=== PATIENT | female | born 1955 | race Caucasian/White ===

== ENCOUNTER 2024-04-13 21:18 | Emergency (ER) | payer OTHER ==
[~2024-04-13] VITALS: Ht 152.4 cm; Wt 59.0 kg
[2024-04-13] MEDS: KETAMINE HCL 50 MG/ML 10ML IV NR (23:59)
[2024-04-14 00:10] VITALS: O2SAT 99
[2024-04-14 01:50] VITALS: BP 123/75; PULSE 61; RESP 17; TEMP 36.78072; O2SAT 96; O2SAT 98
== END 2024-04-14 02:00 | disposition home or self-care (01) ==
LOC: ER 21:18
DX: S43.005A Unspecified dislocation of left shoulder joint, initial encounter (principal); W06.XXXA Fall from bed, initial encounter; Y93.01 Activity, walking, marching and hiking; Z86.73 Personal history of transient ischemic attack (TIA), and cerebral infarction without residual deficits; Z88.5 Allergy status to narcotic agent; I10 Essential (primary) hypertension
CPT/HCPCS: 99291; 23650; 73030; 99152; J3490